=== PATIENT | male | born 1995 | race Caucasian/White ===

== ENCOUNTER 2017-03-04 09:03 | Emergency (ER) | payer OTHER, SELFPAY | END 2017-03-04 09:37 | disposition home or self-care (01) | PROVIDERS: Emergency Provider Nurse Practitioner; Visit Provider Nurse Practitioner | DX: J06.9 Acute upper respiratory infection, unspecified (principal) | CPT/HCPCS: 87804; 87880; 99201 ==

== ENCOUNTER → 2019-09-20 16:16 | Outpatient (CLI) | payer OTHER, SELFPAY ==
[2019-09-22 13:02] LABS: Covid-19 Nasal PCR Sendout Lex Not Detected
== END ==
PROVIDERS: PCP Family Medicine; Visit Provider Family Medicine
DX: Z03.818 Encounter for observation for suspected exposure to other biological agents ruled out (principal)
CPT/HCPCS: U0004

== ENCOUNTER → 2019-12-05 14:04 | Outpatient (CLI) | payer OTHER, SELFPAY ==
--- NOTE | 2019-12-05 14:17 | ECG_ITS ---
APPROVED REPORT Exam: Resting ECG HR:94 bpm ECG Measurements Heart Rate 94 AXES DE 118 P 56 QRSd 84 QRS 65 QT 340 T 25 QTc 425 <Conclusion> Normal sinus rhythm Normal ECG Electronically signed by : Jony Shahid, 12/05/2019 16:37:02
== END ==
PROVIDERS: PCP Family Medicine; Visit Provider Nurse Practitioner
DX: I10 Essential (primary) hypertension (principal)
CPT/HCPCS: 93005

== ENCOUNTER → 2021-02-11 21:05 | Outpatient (CLI) | payer OTHER, SELFPAY | PROVIDERS: PCP Family Medicine; Visit Provider Nurse Practitioner | DX: U07.1 COVID-19 (principal) | CPT/HCPCS: C9803; U0003; U0005 ==

== ENCOUNTER → 2021-09-17 08:48 | Outpatient (CLI) | payer OTHER, SELFPAY ==
--- NOTE | 2021-09-17 08:52 | US_ITS ---
FINAL REPORT CLINICAL HISTORY: RUQ PAIN FINDINGS: ULTRASOUND RIGHT UPPER QUADRANT Sonographic imaging of the right upper quadrant was obtained. The pancreas is partially obscured. The liver has increased echogenicity consistent with fatty infiltration. There is no evidence of gallstones. There is no gallbladder wall thickening. There is no biliary ductal dilatation. The common duct is normal at 3 mm. The right kidney measures 10.2 cm in length and limited images are unremarkable. IMPRESSION: Fatty liver. Otherwise unremarkable exam. Reviewed, Interpreted and Dictated by Sohail Blanton MD Transcribed by Shawna West Authenticated and [facility]
== END ==
PROVIDERS: PCP Internal Medicine Adolescent Medicine; Visit Provider Internal Medicine Adolescent Medicine
DX: R10.11 Right upper quadrant pain (principal)
CPT/HCPCS: 76705

== ENCOUNTER → 2021-10-15 10:11 | Outpatient (CLI) | payer OTHER, SELFPAY ==
--- NOTE | 2021-10-15 10:15 | CT_ITS ---
FINAL REPORT TECHNIQUE: Axial images through the abdomen and pelvis were performed without contrast. Oral contrast was administered. This study was performed with techniques to keep radiation doses as low as reasonably achievable, (ALARA). Individualized dose reduction techniques using automated exposure control or adjustment of mA and/or kV according to the patient's size were employed. CLINICAL HISTORY: RT SIDED ABD PAIN,LOOSE STOOLS,CHRONIC PAIN FINDINGS: ABDOMEN: The lung bases are clear. There is contrast in the distal thoracic esophagus which may be due to reflux or stricture. The heart size is normal. Limited images of the liver are unremarkable. The spleen is normal. No adrenal mass is identified. The aorta is normal in caliber. There is no significant free fluid or adenopathy. There is no nephrolithiasis. There is no hydronephrosis. PELVIS: The appendix is unremarkable. The urinary bladder is unremarkable. There is no significant free fluid or adenopathy. IMPRESSION: Possible reflux or stricture. Reviewed, Interpreted and Dictated by Shane Wu III, MD Transcribed by Bianca Barclay Authenticated and [facility]
== END ==
PROVIDERS: PCP Internal Medicine Adolescent Medicine; Visit Provider Nurse Practitioner Family
DX: R10.9 Unspecified abdominal pain (principal); R19.5 Other fecal abnormalities; G89.29 Other chronic pain
CPT/HCPCS: 74176

== ENCOUNTER → 2021-11-23 16:15 | Outpatient (CLI) | payer OTHER, SELFPAY | PROVIDERS: PCP Internal Medicine Adolescent Medicine; Visit Provider Internal Medicine | DX: Z01.818 Encounter for other preprocedural examination (principal); Z20.822 Contact with and (suspected) exposure to COVID-19; Z13.810 Encounter for screening for upper gastrointestinal disorder | CPT/HCPCS: C9803; U0003; U0005 ==

== ENCOUNTER 2021-11-25 10:43 | Day surgery (SDC) | payer OTHER, SELFPAY ==
[2021-11-23 13:10] VITALS: BMI 32.5
[2021-11-25 11:19] VITALS: BP 133/84; PULSE 58; RESP 18; TEMP 36.6; O2SAT 100
[2021-11-25 12:36] VITALS: O2SAT 98
--- NOTE | 2021-11-25 12:44 | HMH.SCOPE ---
Procedure: Date: 11/25/21 Patient Date of :: 1995 Procedure Performed:: EGD Indications:: Abdominal pain. The patient had CT abdomen that demonstrated contrast in the distal thoracic esophagus which may be due to reflux or stricture. The patient denies dysphagia or GERD symptoms Performing Provider:: Celestino Lundberg MD Referring Provider:: Khalif Hitchcock Sedation:: See RN notes Procedure:: The gastroscope was gently passed through the incisoral orifice into the oral cavity and under direct visualization the esophagus was intubated. The endoscope was passed down the esophagus, through the stomach, and into the duodenum. Color, texture, mucosa, and anatomy of the esophagus, stomach, and duodenum were carefully examined with the scope. Findings:: Oropharynx: normal Esophagus: normal. Biopsies obtained distal and mid esophagus EG Junction: Mild esophagitis Cardia: normal Fundus: normal Body: normal. Biopsies obtained Antrum: normal. Biopsies obtained Duodenal bulb:normal. Biopsies obtained Duodenum (second and third portion): normal. Biopsies obtained Impression: Mild distal esophagitis Recommendations:: Await pathology results Omeprazole 20 mg once daily x 8 weeks, then take as needed Follow up with referring provider Complications:: None Estimated blood obtained (mL): 0
[2021-11-25 12:50] VITALS: BP 89/54; PULSE 67; RESP 18; TEMP 36.4; O2SAT 98
[2021-11-25 13:00] VITALS: BP 96/58; PULSE 67; RESP 18; O2SAT 97
[2021-11-25 13:10] VITALS: BP 104/62; PULSE 63; RESP 18; O2SAT 100
[2021-11-25 13:18] VITALS: BP 112/74; PULSE 74; RESP 18; O2SAT 99
== END 2021-11-25 13:24 | disposition home or self-care (01) ==
PROVIDERS: PCP Internal Medicine Adolescent Medicine; Visit Provider Internal Medicine
PROC: 0DJ08ZZ Inspection of Upper Intestinal Tract, Via Natural or Artificial Opening Endoscopic (ICD-10-PCS; CPT 43235; principal; 2021-11-25 12:00)
DX: R10.9 Unspecified abdominal pain (principal); K29.70 Gastritis, unspecified, without bleeding; K20.90 Esophagitis, unspecified without bleeding
CPT/HCPCS: 43239

== ENCOUNTER 2022-02-21 15:59 | Emergency (ER) | payer OTHER, SELFPAY ==
[2022-02-21 16:11] VITALS: BP 116/59; PULSE 67; RESP 18; TEMP 36.7; O2SAT 97; BMI 32.5
--- NOTE | 2022-02-21 16:42 | EXP.UTC ---
Discharge Plan Disposition Patient Disposition: Home, Self-Care Condition: Good Prescriptions Prescriptions: New doxycycline monohydrate 100 mg capsule 100 mg PO BID 10 Days Qty: 20 0RF No Action bisoprolol fumarate 5 mg Tablet 5 mg PO DAILY Referrals Follow up/Referrals: Ale Motley APRN [Primary Care Provider] - See instructions Clinical Impressions Clinical Impression: Acute right otitis media Instructions Patient Instructions: DI for Middle Ear Infection-Adult Discharge ED Provider: Quita Stubbs [facility] General Stated complaint: right ear ache Mode of Arrival: Ambulatory Source of Information: Patient Limitations: No Limitations Time Seen by Provider: 02/21/22 16:42 Description of Symptoms (Recalled from Triage Doc. by RN): pt comes in with c/o right ear pain that began today HEENT Symptoms (Recalled from RN notes): Yes Resp Symptoms (Recalled from RN notes): No Skin Symptoms (Recalled from RN notes): No MS Symptoms (Recalled from RN notes): No Functional Status (Recalled from RN notes): n/a History of Present Illness Provider Complaint: Pt states that he woke up this morning with a really bad earache. He reports that he took Tylenol but feels as if his eardrum has ruptured. He states that he had the flu last week. Related Data Home Medications Medication Instructions Recorded Confirmed bisoprolol fumarate 5 mg tablet 5 mg PO DAILY High blood pressure 11/25/21 11/25/21 Previous Rx's Medication Instructions Recorded doxycycline monohydrate 100 mg 100 mg PO BID 10 days #20 caps 02/21/22 capsule Allergies Allergy/AdvReac Type Severity Reaction Status Date / Time Penicillins [PENICILLINS] Allergy Unknown Unknown Verified 02/21/22 16:13 allergy reaction Worker's Comp Is this a Worker's Comp case?: No [facility] Disclaimer: The information contained in this section may have been updated after the patient was seen, as this information can be updated by other users. Medical History (Updated 02/21/22 @ 16:50 by Quita Stubbs APRN) History of COVID-19 Hypertension Surgical History [place] teeth removed Family History Grandfather Cancer Pacemaker Family history of heart disease Grandmother Hypertension Mother Family history of heart disease Social History Smoking Status: Never smoker alcohol intake: never substance use type: denies use current occupational status: employed Travel in the last 8 weeks: None ROS Obtained: Yes All systems reviewed & no additional complaints except as documented Constitutional Constitutional: Reports system reviewed and no additional complaints, except as documented Eyes Eyes: Reports system reviewed and no additional complaints, except as documented ENT Ears, Nose, Mouth, and Throat: Reports otalgia and Reports nasal discharge Cardiovascular Cardiovascular: Reports system reviewed and no additional complaints, except as documented Respiratory Respiratory: Reports system reviewed and no additional complaints, except as documented Gastrointestinal Gastrointestingal: Reports system reviewed and no additional complaints, except as documented Genitourinary Male Genitourinary: Reports system reviewed and no additional complaints, except as documented Musculoskeletal Musculoskeletal: Reports system reviewed and no additional complaints, except as documented Integumentary/Breasts Skin/Breast: Reports system reviewed and no additional complaints, except as documented Neurologic Neurologic: Reports system reviewed and no additional complaints, except as documented Hematologic/Lymphatic Henatologic/Lymphatic: Reports system reviewed and no additional complaints, except as documented Allergic/Immunologic Allergic/Immunologic: Reports system reviewed
[2022-02-21 16:50] VITALS: BP 116/59; PULSE 67; RESP 18; TEMP 36.7
== END 2022-02-21 17:02 | disposition home or self-care (01) ==
PROVIDERS: Emergency Provider Nurse Practitioner Family; PCP Nurse Practitioner Family
DX: H66.91 Otitis media, unspecified, right ear (principal)
CPT/HCPCS: 99212; G0463

== ENCOUNTER 2024-02-21 17:11 | Emergency (ER) | payer OTHER, SELFPAY ==
[2024-02-21 17:40] VITALS: BP 126/86; PULSE 77; RESP 20; TEMP 36.9; O2SAT 99; BMI 35.7
[2024-02-21 17:57] LABS: UTC Influenza A Antigen Negative (Negative)
[2024-02-21 17:58] LABS: UTC Influenza B Antigen Negative (Negative)
--- NOTE | 2024-02-21 17:59 | EXP.UTC ---
Discharge Plan Disposition Patient Disposition: Home, Self-Care Prescriptions Prescriptions: New azithromycin [Zithromax Z-Constantino] 250 mg tablet See Rx Instructions .ROUTE .COMPLEX 5 Days Qty: 6 0RF Rx Instructions: For 250 mg dose pack: take 500 mg today (day 1), then 250 mg for 4 days (days 2-5) methylprednisolone [Medrol (Constantino)] 4 mg tablets,dose pack See Rx Instructions .Route .COMPLEX 6 Days Qty: 21 0RF Rx Instructions: taper pack; Referrals Follow up/Referrals: Tena Bustos APRN [Primary Care Provider] - See instructions Activity Restrictions/Add. Instructions Additional Instructions/Restrictions: *Monitor Temp, Over the counter Motrin or Tylenol as directed/as needed Tylenol every 4 hours and Motrin every 6 hours (as long as your family doctor has told you that you can take it) for fever or pain. and straight to ER if unable to lower temp less than 101.0 after medication given *Warm salt water gargles may help to soothe the throat *Throat Lozenges? *Warm fluids like tea with honey may help to soothe the throat? *Sleep elevated *Humidifier/Vaporizer Follow up IMMEDIATELY for new or worsening symptoms or no Noticeable improvement over the next 48-72 hours. 911 for difficulty breathing or swallowing Clinical Impressions Clinical Impression: Sinusitis Stand Alone Forms Stand Alone Forms: Work/School Release Instructions Patient Instructions: DI for Sinusitis, Sinusitis Print Language Print Language: [place] Discharge ED Provider: Karen Worthington [facility] HPI General Stated complaint: body aches congestion Mode of Arrival: Ambulatory Source of Information: Patient Limitations: No Limitations Time Seen by Provider: 02/21/24 17:59 Description of Symptoms (Recalled from Triage Doc. by RN): PATIENT C/O BODY ACHES AND CONGESTION THAT STARTED TODAY HEENT Symptoms (Recalled from RN notes): Yes Resp Symptoms (Recalled from RN notes): No Skin Symptoms (Recalled from RN notes): No MS Symptoms (Recalled from RN notes): No Functional Status (Recalled from RN notes): WNL History of Present Illness Provider Complaint: Patient states that he has been having a cough and sinus congestion for over a week States today he started feeling achy and having chills and his sinus congestion has continued to get worse so he came in to get checked Related Data Previous Rx's ?Medication ?Instructions ?Recorded azithromycin 250 mg tablet See Rx Instructions PO .COMPLEX 5 02/21/24 (Zithromax Z-Constantino) days #6 tabs methylprednisolone 4 mg tablets in See Rx Instructions .Route 02/21/24 a dose pack (Medrol (Constantino)) .COMPLEX 6 days #21 tabs Allergies Allergy/AdvReac Type Severity Reaction Status Date / Time Penicillins (PENICILLINS) Allergy Unknown Unknown Verified 05/20/23 08:35 allergy reaction Worker's Comp Is this a Worker's Comp case?: No [facility] Disclaimer: The information contained in this section may have been updated after the patient was seen, as this information can be updated by other users. Medical History (Updated 02/21/24 @ 18:24 by Karen Worthington APRN) History of COVID-19 Hypertension Surgical History [place] teeth removed Family History Grandfather Cancer Pacemaker Family history of heart disease Grandmother Hypertension Mother Family history of heart disease Social History Smoking Status: Never smoker alcohol intake: never substance use type: denies use current occupational status: employed Travel in the last 8 weeks: None Have you lived/traveled outside US in past 30 days?: No Contact w/someone who lives/traveled outside US past 30 days?: No Exposure to someone with infectious disease in past 14 days?: No Do you have a fever (greater than 100.4 F or 38 C)?: No Have you tested positive for COVID-19: No Exposed to someone with COVID-19 in past 14 days?: No Do you have a sore throat?: No Do you have a cough?: No Do you have any weakness?: No Do you have any diarrhea?: No Are you experiencing any unusual bleeding?: No Do you have any muscle aches/pain?: No Do you have any abdominal pain?: No Are you experiencing loss of taste or smell?: No ROS Obtained: Yes All systems reviewed & no additional complaints except as documented and Yes Systems reviewed as appropriate & no additional complaints except as documented Constitutional Constitutional: Reports system reviewed and no additional complaints, except as documented, Reports as per HPI, Reports body ache, Reports chills and Reports headache(s) ENT Ears, Nose, Mouth, and Throat: Reports system reviewed and no additional complaints, except as documented, Reports as per HPI, Reports headache(s), Reports nasal congestion, Reports sinus pain and Reports sinus pressure Cardiovascular Cardiovascular: Reports system reviewed and no additional complaints, except as documented and Reports as per HPI Respiratory Respiratory: Reports system reviewed and no additional complaints, except as documented, Reports as per HPI and Reports cough Gastrointestinal Gastrointestingal: Reports system reviewed and no additional complaints, except as documented and as per HPI Genitourinary Male Genitourinary: Reports system reviewed and no additional complaints, except as documented and Reports as per HPI Neurologic Neurologic: Reports headache(s) Physical Exam General General appearance: alert and in no apparent distress ENT ENT exam: Present mucous membranes moist Expanded ENT Exam Nose exam: Present sinus tenderness Throat exam: Present other (PND noted) Respiratory Respiratory exam: Present normal lung sounds bilaterally; Absent respiratory distress or wheezes Cardiovascular Cardiovascular exam: Present regular rate, normal rhythm and normal heart sounds Abdominal Exam Abdominal exam: Present soft and normal bowel sounds; Absent distention or tenderness Neurological Exam Neurological exam: Present alert, oriented X3 and normal gait Medical Decision Making Medical Records Screening: Per USPSTF and CDC recommendations, given the prevalence of disease in our region, it is our hospital?s policy to screen for HIV and viral Hepatitis for all patients aged 18 and over and those with ongoing risk factors. Fidel Inquiry Pt receiving controlled substance: No Fidel was queried for this patient: No Vital Signs: 02/21/24 17:40 Temperature 98.4 F Temperature Source Oral Pulse Rate [Left Brachial] 77 Respiratory Rate 20 Blood Pressure [Left Arm] 126/86 Blood Pressure Mean [Left Arm] 99 Blood Pressure Source [Left Arm] Automatic Cuff Blood Pressure Position [Left Arm] Sitting 02 Sat by Pulse Oximetry 99 Oxygen Delivery Method Room Air Lab Data Lab results reviewed: Yes I reviewed the patient's lab results. Lab Results 02/21/24 17:37: Influenza Type A Ag Negative, Influenza Type B Ag Negative
[2024-02-21 18:28] VITALS: BP 126/86; PULSE 77; RESP 20; TEMP 36.9; O2SAT 99
== END 2024-02-21 18:32 | disposition home or self-care (01) ==
PROVIDERS: Emergency Provider Nurse Practitioner; PCP Nurse Practitioner
DX: J01.90 Acute sinusitis, unspecified (principal)
CPT/HCPCS: 87804; 99213; G0381

== ENCOUNTER 2024-05-24 08:29 | Emergency (ER) | payer OTHER, SELFPAY ==
[2024-05-24] VITALS (10 sets, daily range): BP systolic 121–140; BP diastolic 65–95; PULSE 73–105; RESP 15–18; TEMP 36.6; O2SAT 95–98; BMI 31.5
--- NOTE | 2024-05-24 08:42 | CT_ITS ---
FINAL REPORT TECHNIQUE: IV contrast enhanced exam This study was performed with techniques to keep radiation doses as low as reasonably achievable, (ALARA). Individualized dose reduction techniques using automated exposure control or adjustment of mA and/or kV according to the patient''s size were employed. CLINICAL HISTORY: RLQ R flank pain rad to back COMPARISON: 10/15/2021 FINDINGS: Abdomen: No acute density is seen within the lung bases. The gallbladder is unremarkable. Solid abdominal organs are unremarkable. No bowel obstruction is present. There is no free air. No fluid collection is seen. There is stable mild mesenteric adenopathy which may be related to mild mesenteric adenitis or panniculitis. Pelvis: The appendix is normal. No bowel wall thickening is present. There is no free fluid. No pelvic mass is seen. IMPRESSION: No acute findings. Reviewed, Interpreted and Dictated by Zafar Paez MD Transcribed by Bianca Barclay Authenticated and [facility]
--- NOTE | 2024-05-24 08:44 | HMH.EDGENADL ---
Discharge Plan Disposition Patient Disposition: Home, Self-Care Chief Complaint: Abdominal Pain Prescriptions Prescriptions: No Action azithromycin [Zithromax Z-Constantino] 250 mg tablet See Rx Instructions .ROUTE .COMPLEX 5 Days Qty: 6 0RF Rx Instructions: For 250 mg dose pack: take 500 mg today (day 1), then 250 mg for 4 days (days 2-5) methylprednisolone [Medrol (Constantino)] 4 mg tablets,dose pack See Rx Instructions .Route .COMPLEX 6 Days Qty: 21 0RF Rx Instructions: taper pack; Referrals Follow up/Referrals: Tena Bustos APRN [Primary Care Provider] - See instructions Activity Restrictions/Add. Instructions Additional Instructions/Restrictions: At this time it was felt you are safe to be discharged home. If new or worsening symptoms please do not hesitate to return the emergency department. If symptoms continue for longer than 7 to 10 days please follow-up with your family doctor for continued evaluation. Clinical Impressions Clinical Impression: Abdominal pain, Diarrhea Instructions Patient Instructions: DI for Acute Abdominal Pain Print Language Print Language: Citizen Of [place] Discharge ED Provider: Sterling Torres General Adult HPI General Chief complaint: Abdominal Pain Stated complaint: abd pain, side pain Time Seen by Provider: 05/24/24 08:34 History of Present Illness HPI narrative: Patient is a 28-year-old male with no pertinent medical history presents emergency department for evaluation of right lower quadrant right flank pain. Onset was acute. Associated nausea and nonbloody diarrhea. The pain is right lower quadrant and right flank wrapping around to his back. No chest pain reported. No scrotal pain. No other acute complaints at this time. No abdominal surgical history. Please note that above description of symptoms, in this electronic medical record under categorization of recalled from ER triage doctor by RN are reflective of an initial nursing assessment, however, is not reflective of my full history and physical exam that was personally taken and clarified. Consequentially, this preceding description of symptoms, which may include the patient's categorized chief complaint in the EMR, do not reflect my personal clinical impression, and the ultimate description of history of present illness and patient stated complaints should be deferred to this section of the note. Unless stated otherwise or congruent with this section of the note, additional signs, symptoms, or incongruence should be interpreted as inaccurate with my clinical impression. Related Data Previous Rx's ?Medication ?Instructions ?Recorded azithromycin 250 mg tablet See Rx Instructions PO .COMPLEX 5 12/17/24 (Zithromax Z-Constantino) days #6 tabs methylprednisolone 4 mg tablets in See Rx Instructions .Route 02/21/24 a dose pack (Medrol (Constantino)) .COMPLEX 6 days #21 tabs Allergies Allergy/AdvReac Type Severity Reaction Status Date / Time Penicillins (PENICILLINS) Allergy Unknown Unknown Verified 05/20/23 08:35 allergy reaction [facility] Disclaimer: The information contained in this section may have been updated after the patient was seen, as this information can be updated by other users. Medical History (Updated 05/24/24 @ 10:05 by Sterling Torres MD) History of COVID-19 Hypertension Surgical History Mcbee teeth removed Family History Grandfather Cancer Pacemaker Family history of heart disease Grandmother Hypertension Mother Family history of heart disease Social History Smoking Status: Never smoker alcohol intake: never substance use type: denies use current occupational status: employed Travel in the last 8 weeks: None Have you lived/traveled outside [place] in past 30 days?: No Contact w/someone who lives/traveled outside US past 30 days?: No Exposure to someone with infectious disease in past 14 days?: No Do you have a fever (greater than 100.4 F or 38 C)?: No Have you tested positive for COVID-19: No Exposed to someone with COVID-19 in past 14 days?: No Do you have a sore throat?: No Do you have a cough?: No Do you have any weakness?: No Do you have any diarrhea?: No Are you experiencing any unusual bleeding?: No Do you have any muscle aches/pain?: No Do you have any abdominal pain?: No Are you experiencing loss of taste or smell?: No Other Medical History Have you received the Pneumonia Vaccine: No ROS Obtained: Yes Systems reviewed as appropriate & no additional complaints except as documented Physical Exam General General appearance: alert and in no apparent distress Head Head exam: atraumatic and normocephalic Eye Eye exam: Present PERRL and EOMI ENT ENT exam: Present mucous membranes moist Neck Neck exam: Present normal inspection Chest Chest inspection: Present normal inspection and symmetric chest wall rise Respiratory Respiratory exam: Absent respiratory distress Cardiovascular Cardiovascular exam: Present regular rate and normal rhythm Abdominal Exam Abdominal exam: Present soft; Absent tenderness, rebound or rigidity Extremities Exam Extremities exam: Present normal inspection Neurological Exam Neurological exam: Present alert Psychiatric Psychiatric exam: Present normal affect Skin Skin exam: Present warm and dry Medical Decision Making Medical Records Screening: Per USPSTF and CDC recommendations, given the prevalence of disease in our region, it is our hospital?s policy to screen for HIV and viral Hepatitis for all patients aged 18 and over and those with ongoing risk factors. Fidel Inquiry Pt receiving controlled substance: No Vital Signs: 05/24/24 08:40 05/24/24 08:50 05/24/24 08:56 Temperature 98 F Temperature Source Oral Pulse Rate 105 H 97 H Pulse Rate [Left Radial] 105 H Respiratory Rate 18 Blood Pressure 132/93 H 121/82 Blood Pressure [Right Arm] 139/95 H Blood Pressure Mean 101 95 Blood Pressure Mean [Right Arm] 109 02 Sat by Pulse Oximetry 98 97 98 Oxygen Delivery Method Room Air 05/24/24 09:03 05/24/24 09:11 05/24/24 09:31 Temperature Temperature Source Pulse Rate 99 H 87 92 H Pulse Rate [Left Radial] Respiratory Rate Blood Pressure 140/94 H 131/87 127/80 Blood Pressure [Right Arm] Blood Pressure Mean Blood Pressure Mean [Right Arm] 02 Sat by Pulse Oximetry 97 97 97 Oxygen Delivery Method Room Air Room Air Room Air 05/24/24 09:40 05/24/24 09:51 Temperature Temperature Source Pulse Rate 90 88 Pulse Rate [Left Radial] Respiratory Rate Blood Pressure 125/80 132/79 Blood Pressure [Right Arm] Blood Pressure Mean Blood Pressure Mean [Right Arm] 02 Sat by Pulse Oximetry 96 95 Oxygen Delivery Method Room Air Room Air Lab Data Lab Results 05/24/24 08:35: Urine Color Yellow, Urine Appearance Clear, Urine pH 6.0, Ur Specific V[place] 1.039 H, Urine Protein Negative, Urine Glucose (UA) Negative, Urine Ketones Negative, Urine Blood Negative, Urine Nitrate Negative, Urine Bilirubin Negative, Urine Urobilinogen 0.2, Ur Leukocyte Esterase Negative, Urine RBC None, Urine WBC None, Ur Squamous Epith Cells Occasional 05/24/24 08:40: WBC 9.1, RBC 5.33, Hgb 15.8, Hct 46.0, MCV 86.3, MCH 29.6, MCHC 34.3, RDW 12.5, Plt Count 253, MPV 10.5 H, Neut % (Auto) 57.6, Lymph % (Auto) 27.8, Weber % (Auto) 11.4 H, Eos % (Auto) 2.4, Baso % (Auto) 0.7, Neut # (Auto) 5.3, Lymph # (Auto) 2.5, Weber # (Auto) 1.0, Eos # (Auto) 0.2, Baso # (Auto) 0.1, Sodium 137, Potassium 4.1, Chloride 105, Carbon Dioxide 22, Anion Gap 14.1, BUN 16, Creatinine 1.10, Estimated Creat Clear 141, Estimated GFR 80, Est GFR ( Amer) 96, Glucose 115 H, Calcium 9.1, Total Bilirubin 1.2, AST 32, ALT 26, Alkaline Phosphatase 63, Total Protein 7.9, Albumin 5.0, Globulin 2.9, Albumin/Globulin Ratio 1.7, Lipase 54 05/24/24 08:45: SARS-CoV-2 (PCR) Not detected, Influenza A Untype (PCR) Not detected, Influenza Type B (PCR) Not detected 05/24/24 08:40 05/24/24 08:40 Orders (Tests/Meds): ED MEDICATIONS Discontinued Medications Generic Name Dose Route Start Last Admin Trade Name Freq PRN Reason Stop Dose Admin Acetaminophen 1,000 mg 05/24/24 08:42 05/24/24 08:55 Acetaminophen 1,000mg/100ml Vial IV 05/24/24 08:43 1,000 mg ONCE ONE Administration Iopamidol 75 ml 05/24/24 09:26 05/24/24 09:29 Iopamidol-370 (76%);100ml Bottle IV 05/24/24 09:27 75 ml ONCE ONE Administration Ketorolac Tromethamine 30 mg 05/24/24 08:42 05/24/24 08:55 Ketorolac 30mg/Ml Vial IV 05/24/24 08:43 30 mg ONCE ONE Administration Ondansetron HCl 4 mg 05/24/24 08:42 05/24/24 08:55 Ondansetron 4mg/2ml Vial IV 05/24/24 08:43 4 mg ONCE ONE Administration Sodium Chloride 10 ml 05/24/24 09:26 05/24/24 09:29 Sodium Chloride 0.9% 10ml Syr (Rad Only) IV 05/24/24 09:27 10 ml ONCE ONE Administration ORDERS Category Date Time Status CT abdomen pelvis w con Stat Cat Scan 05/24/24 08:42 Completed CBC w/Auto Diff [Complete Blood Count Auto Diff] Stat Lab 05/24/24 08:40 Completed CMP [Comprehensive Metabolic Panel] Stat Lab 05/24/24 08:40 Completed HIV Combo Stat Lab 05/24/24 08:40 Received Hepatitis C Ab Qual. W/ RFX Stat Lab 05/24/24 08:40 Received Lipase Stat Lab 05/24/24 08:40 Completed Rapid PCR Covid and Flu A/B Stat Lab 05/24/24 08:45 Completed UA [Urinalysis and Microscopic] Stat Lab 05/24/24 08:35 Completed Medical Decision Narrative: In summary patient is a 28-year-old male with past medical history described above presents emergency department for evaluation of right lower quadrant right flank pain. Patient is hemodynamically stable nontoxic-appearing upon arrival, appearing uncomfortable, afebrile. Differential includes ureterolithiasis, ureteritis, appendicitis, among others. Workup will be conducted with hematologic labs, urinalysis, CT abdomen pelvis IV contrast. Initial inventions include Toradol, Tylenol, Zofran. Initial workup reviewed by me, no significant leukocytosis or anemia, hematologic labs are nonactionable no HENRIK or critical electrolyte abnormality urinalysis interpreted by me and not consistent with infection, no hematuria viral swab negative. CT read normal appendix no acute findings. Given his history of diarrhea and abdominal pain I suspect that he likely has an infectious enteritis of some sort. Upon repeat evaluation patient was tolerating p.o. at bedside. Given this it was felt that all emergent conditions were essentially ruled out at this time patient is appropriate for outpatient management was given return precautions verbalized understanding. Critical Care Critical Care Time Critical Care Time: No
[2024-05-24 08:45] LABS: Microscopic, Urine URINE MICROSCOPIC (MICROSCOPIC)
[2024-05-24 08:47] LABS: Appearance,Urine CLEAR (Clear); Bilirubin,Urine Negative (Negative); Blood, Urine Negative (Negative); Color,Urine YELLOW (Yellow); Glucose,Urine (UA) Negative (Negative); Ketones,Urine Negative (Negative); Leukocyte Esterase,Urine Negative (Negative); Nitrate,Urine Negative (Negative); Protein,Urine Negative (Negative); Urobilinogen,Urine 0.2 EU/dl (0.2)
[2024-05-24 08:49] LABS: Coronavirus 19, PCR Not Detected (NotDetected); Influenza A, PCR Not Detected (NotDetected); Influenza B, PCR Not Detected (NotDetected)
[2024-05-24 08:50] LABS: Specific Gravity, Urine 1.039 (1.005-1.030)
[2024-05-24 08:52] LABS: Basophils # 0.1 K/mm3 (0-0.2); Basophils % 0.7 % (0.1-2.0); Eosinophils # 0.2 K/mm3 (0.0-0.4); Eosinophils % 2.4 % (0.1-12.0); Hemoglobin 15.8 g/dL (14.1-18.0); Lymphocytes # 2.5 K/mm3 (0.7-4.5); Lymphocytes % 27.8 % (10-50); Mean Corpuscular HGB Conc 34.3 g/dL (31.8-35.4); Mean Corpuscular Hemoglobin 29.6 pg (27.0-31.2); Mean Corpuscular Volume 86.3 fl (80-94); Mean Platelet Volume 10.5 fl (7.4-10.4); Monocytes % 11.4 % (1.7-9.3); Neutrophils # 5.3 K/mm3 (1.8-7.8); Neutrophils % 57.6 % (37.0-80.0); Platelet Count 253 K/mm3 (142-424); Red Blood Count 5.33 M/mm3 (4.60-6.20); Red Cell Distribution Width 12.5 % (11.5-17.5); White Blood Count 9.1 K/mm3 (4.8-10.8)
[2024-05-24] MEDS: ACETAMINOPHEN 1,000MG/100ML VIAL 1000 MG IV (08:55)
[2024-05-24] MEDS: ONDANSETRON 4MG/2ML VIAL 4 MG IV (08:55)
[2024-05-24] MEDS: KETOROLAC 30MG/ML VIAL 30 MG IV (08:55)
[2024-05-24 09:02] LABS: Chloride 105 mmol/L (98-107); Potassium 4.1 mmoL/L (3.5-5.1); Sodium 137 mmol/L (136-145)
[2024-05-24 09:05] LABS: Alanine Aminotransferase 26 U/L (12-78); Albumin/Globulin Ratio 1.7 (1.1-1.8); Alkaline Phosphatase 63 U/L (38-126); Anion Gap 14.1 mEq/L (5-15); Aspartate Amino Transferase 32 U/L (17-59); Bilirubin,Total 1.2 mg/dl (0.2-1.3); Blood Urea Nitrogen 16 mg/dl (9-20); Calcium 9.1 mg/dl (8.4-10.2); Carbon Dioxide 22 mmol/L (22.0-30.0); Creatinine Clearance Estimated 141 mL/min (50-200); Estimated Glomerular Filt Rate 80 ml/min (>60); GFR (African American) 96 ML/MIN (>60); Globulin 2.9 g/dL (1.3-3.2); Glucose 115 mg/dl (74-100); Lipase 54 U/L (23-300); Total Protein,Serum 7.9 g/dl (6.3-8.2)
[2024-05-24 09:05] LABS: Squamous Epithelial Cell,Urine Occasional #/hpf (0-5)
[2024-05-24] MEDS: IOPAMIDOL-370 (76%);100ML BOTTLE 75 ML IV (09:29)
[2024-05-24] MEDS: SODIUM CHLORIDE 0.9% 10ML SYR (RAD ONLY) 10 ML IV (09:29)
--- NOTE | 2024-05-24 10:03 | PC.NURSE ---
pt given bottle of water for po challenge
[2024-05-24 11:06] LABS: HIV Combo NEGATIVE (Negative)
[2024-05-24 11:14] LABS: Hepatitis C Ab Qual. W/ RFX NEGATIVE (Negative)
== END 2024-05-24 10:13 | disposition home or self-care (01) ==
PROVIDERS: Emergency Provider Emergency Medicine; PCP Nurse Practitioner
DX: R10.31 Right lower quadrant pain (principal); R11.0 Nausea; R19.7 Diarrhea, unspecified
CPT/HCPCS: 74177; 80053; 81001; 83690; 85025; 86803; 87389; 87636; 96374; 96375; 99285; J0131; J1885; J2405; Q9967

== ENCOUNTER 2024-05-24 16:20 | Outpatient (CLI) | payer OTHER, SELFPAY ==
[2024-05-24 18:38] LABS: Basophils # 0.1 K/mm3 (0-0.2); Basophils % 0.8 % (0.1-2.0); Eosinophils # 0.2 K/mm3 (0.0-0.4); Eosinophils % 3.2 % (0.1-12.0); Hematocrit 42.7 % (42.0-52.0); Hemoglobin 14.5 g/dL (14.1-18.0); Lymphocytes # 2.5 K/mm3 (0.7-4.5); Lymphocytes % 36.9 % (10-50); Mean Corpuscular Hemoglobin 29.5 pg (27.0-31.2); Mean Platelet Volume 11.1 fl (7.4-10.4); Monocytes # 0.9 K/mm3 (0.1-1.0); Monocytes % 13.8 % (1.7-9.3); Platelet Count 228 K/mm3 (142-424); Red Blood Count 4.91 M/mm3 (4.60-6.20); Red Cell Distribution Width 12.4 % (11.5-17.5); White Blood Count 6.7 K/mm3 (4.8-10.8)
[2024-05-24 19:58] LABS: Alanine Aminotransferase 22 U/L (12-78); Albumin Level 4.7 g/dl (3.5-5.0); Alkaline Phosphatase 51 U/L (38-126); Anion Gap 12.8 mEq/L (5-15); Aspartate Amino Transferase 28 U/L (17-59); Bilirubin,Total 0.8 mg/dl (0.2-1.3); Blood Urea Nitrogen 18 mg/dl (9-20); Calcium 8.6 mg/dl (8.4-10.2); Carbon Dioxide 25 mmol/L (22.0-30.0); Chloride 105 mmol/L (98-107); Estimated Glomerular Filt Rate 72 ml/min (>60); GFR (African American) 87 ML/MIN (>60); Globulin 2.4 g/dL (1.3-3.2); Glucose 89 mg/dl (74-100); Potassium 3.8 mmoL/L (3.5-5.1); Sodium 139 mmol/L (136-145); Total Protein,Serum 7.1 g/dl (6.3-8.2)
== END 2024-05-24 23:59 | disposition home or self-care (01) ==
LOC: LAB.DROPOF 05-25 11:51
PROVIDERS: PCP Nurse Practitioner; Visit Provider Nurse Practitioner
DX: R10.9 Unspecified abdominal pain (principal); R19.7 Diarrhea, unspecified
CPT/HCPCS: 80053; 85025

== ENCOUNTER 2024-05-25 11:49 | Outpatient (CLI) | payer OTHER, SELFPAY ==
--- NOTE | 2024-05-25 11:30 | US_ITS ---
FINAL REPORT TECHNIQUE: Multiple transverse and longitudinal images CLINICAL HISTORY: RUQ/right-side abd - SCHEDULE IN 24HRS COMPARISON: 09/17/2021 FINDINGS: The gallbladder shows no wall thickening, distention or stone disease. No biliary ductal dilatation is appreciated. No fluid collections are seen. There are fatty changes in a normal sized liver. Limited portions of the right kidney are unremarkable. IMPRESSION: Fatty liver. Reviewed, Interpreted and Dictated by Zafar Paez MD Transcribed by Divya Reed Authenticated and . [facility]
== END 2024-05-25 23:59 | disposition home or self-care (01) ==
LOC: RAD 11:50
PROVIDERS: PCP Nurse Practitioner; Visit Provider Nurse Practitioner
DX: R10.11 Right upper quadrant pain (principal); R19.7 Diarrhea, unspecified
CPT/HCPCS: 76705

== ENCOUNTER 2024-06-08 08:28 | Outpatient (CLI) | payer OTHER, SELFPAY ==
--- NOTE | 2024-06-08 09:00 | NM_ITS ---
FINAL REPORT CLINICAL HISTORY: right-sided abdominal pain, diarrhea COMPARISON: None FINDINGS: Sequential anterior projection images of the abdomen were obtained after the intravenous injection of 8.15 mCi technetium 99m Choletec. There is normal uptake of radiotracer by the liver. Activity is noted in the timely fashion. After 1 hour, 2 ?g of CCK was injected intravenously for calculation of gallbladder ejection fraction. The gallbladder ejection fraction is 73%, which is within normal limits. IMPRESSION: No evidence of cystic duct or bile duct obstruction. Normal gallbladder ejection fraction of 73%. Reviewed, Interpreted and Dictated by Zafar Paez MD Transcribed by Divya Reed Authenticated and [facility]
[2024-06-08] MEDS: SODIUM CHLORIDE 0.9% 10ML SYR (RAD ONLY) 10 ML IV (09:15)
[2024-06-08] MEDS: SINCALIDE 2 MCG in 0.9 % SODIUM CHLORIDE 50 ML 100 MCG IV (10:20)
[2024-06-08] MEDS: ISOTOPE CHOLETECH;1 DOSE (UP TO 15 MCI) IV (11:14)
== END 2024-06-08 23:59 | disposition home or self-care (01) ==
LOC: RAD 08:29
PROVIDERS: PCP Nurse Practitioner; Visit Provider Nurse Practitioner
DX: R19.7 Diarrhea, unspecified (principal); R10.9 Unspecified abdominal pain
CPT/HCPCS: 78227; A9537; J2805